=== PATIENT | female | born 1995 | race Two or more races ===

== ENCOUNTER → 2024-09-03 | Outpatient (CLI) | payer BC, OTHER, SELFPAY ==
[2024-09-03 11:32] LABS: Follicle Stimulating Hormone 11.48 mIU/mL (See Note)
[2024-09-09 07:17] LABS: Luteinizing Hormone* 88.1 mIU/mL; Prolactin* <1.0 ng/mL
== END | disposition home or self-care (01) ==
LOC: COPL 10:15
PROVIDERS: PCP Family Medicine; Referring Provider Internal Medicine; Visit Provider Internal Medicine
DX: D35.2 Benign neoplasm of pituitary gland (principal); E22.9 Hyperfunction of pituitary gland, unspecified; E22.1 Hyperprolactinemia; Z51.81 Encounter for therapeutic drug level monitoring
CPT/HCPCS: 36415; 83001; 83002; 84146